=== PATIENT | female | born 2005 | race Caucasian/White ===

== ENCOUNTER 2024-06-08 18:07 | Outpatient (CLI) | payer OTHER, SELFPAY ==
[2024-06-08 18:56] LABS: HCG Quant, Pregnancy 15144 mIU/mL (1-3)
== END 2024-06-08 18:08 | disposition home or self-care (01) ==
LOC: LBO 18:07
PROVIDERS: Advanced Practice Midwife; Visit Provider Obstetrics & Gynecology
DX: O03.9 Complete or unspecified spontaneous abortion without complication (principal); O20.9 Hemorrhage in early pregnancy, unspecified
CPT/HCPCS: 36415; 86850; 86900; 86901; 84702

== ENCOUNTER 2024-06-14 09:55 | Outpatient (CLI) | payer OTHER, SELFPAY ==
[2024-06-14 10:14] LABS: HCG Quant, Pregnancy 357 mIU/mL (1-3)
== END 2024-06-14 09:56 | disposition home or self-care (01) ==
LOC: LBO 09:57
PROVIDERS: Visit Provider Obstetrics & Gynecology
DX: O03.9 Complete or unspecified spontaneous abortion without complication (principal)
CPT/HCPCS: 36415; 84702

== ENCOUNTER 2025-09-27 00:38 | Outpatient (CLI) | payer BC, SELFPAY ==
[2025-09-27 11:19] LABS: Abs Immature Grans 0.07 10^3/uL (0.0-0.06); HCT 38.3 % (36.0-46.0); HGB 12.6 g/dL (11.2-15.7); Immature Grans % 0.7 %; MCH 28.6 pg (27.0-33.0); MCHC 32.9 % (32.0-36.0); MCV 87 fL (80-95); MPV 8.9 fL (8.0-11.0); Platelet Count 318 10^3/uL (130-400); RBC 4.40 10^6/uL (3.93-5.22); RDW 14.0 % (11.7-14.6); RDW-SD 44.2 fL; WBC 10.36 10^3/uL (4.4-10.8)
== END 2025-09-27 00:39 | disposition home or self-care (01) ==
LOC: LBO 00:39
PROVIDERS: Obstetrics & Gynecology; Visit Provider Advanced Practice Midwife
DX: Z01.818 Encounter for other preprocedural examination (principal)
CPT/HCPCS: 36415; 86850; 86900; 86901; 85025

== ENCOUNTER 2025-09-28 13:00 | Day surgery (SDC) | payer BC, SELFPAY ==
[2025-09-28] VITALS (17 sets, daily range): BP systolic 100–126; BP diastolic 48–82; PULSE 60–80; RESP 13–21; TEMP 36.4–37.1; TEMPC 37.1; O2SAT 97–100; BMI 20.2
[2025-09-28] MEDS: Lactated Ringers 1,000 ML 125 ML IV (13:49)
--- NOTE | 2025-09-28 15:02 | W.ANESPRE ---
General Info Date of Service Date Performed: 09/28/25 Height: 5 ft 3 in Weight: 51.7 kg Body Mass Index (BMI): 20.2 Surgical Procedure: Operation Date: 09/28/25 14:25 Proposed Procedure Side Surgeon p D&C W/Juve Deleon DO Meds Allergies and Home Medications Allergies Allergy/AdvReac Type Severity Reaction Status Date / Time pet dander Allergy Intermediate Itching Uncoded 09/28/25 13:25 Home Medication ?Medication ?Instructions ?Recorded hydroxyzine HCl 25 mg tablet 25 mg PO QHS PRN 05/12/24 ondansetron HCl 4 mg tablet 4 mg PO Q6H PRN nausea and 08/29/25 vomiting #20 tabs fexofenadine 180 mg tablet 180 mg PO DAILY PRN 09/27/25 mwn-wuzk-xqhka acid 40 ml PO 09/27/25 mg-1 mg/15 mL oral liquid sertraline 25 mg tablet 25 mg PO DAILY #30 tabs 09/27/25 Current Visit Medications: Current Medications Generic Name Dose Route Start Last Admin Trade Name Issaq PRN Reason Stop Dose Admin Ringer's Solution 1,000 mls @ 125 mls/hr 09/28/25 06:00 09/28/25 13:49 IV 09/28/25 23:59 125 mls/hr INFUSION MARY Administration Doxycycline Hyclate 100 mg/ 100 mls @ 100 mls/hr 09/27/25 16:00 Sodium Chloride IVPB 09/28/25 16:00 TODAY MARY Sodium Chloride 0 ml 09/28/25 06:00 Normal Saline Flush 10 Ml Syr IV 09/28/25 23:59 PRN PRN Sodium Chloride 0 ml 09/28/25 06:00 Normal Saline 10 Ml Vial IJ 09/28/25 23:59 DIRECTED PRN Sterile Water 0 ml 09/28/25 06:00 Water,Injection,Sterile 10 Ml Vial IJ 09/28/25 23:59 DIRECTED PRN PFSH Active Problems Active Problems: Problem Status Onset Code Embryonic demise Acute O02.1 Chronic post-traumatic stress disorder (PTSD) Acute F43.12 Acute Z34.90 SAB (spontaneous ) Acute O03.9 Anxiety Chronic F41.9 Depression Chronic F32.A Medical History Medical History ADHD Delayed menses Early stage of Bleeding in early Surgical History Surgical History Hx of knee surgery Tobacco Smoking/Tobacco Use Status: Current every day Tobacco Type: e-cigarettes Smokeless tobacco user: other Passive smoking exposure: No Alcohol Alcohol Intake: former Substance Use Substance use: Daily Substance use type: marijuana Details: 09/28/25: smoked marijuana this a.m. Prental History History 2 Para 0 Hx # Term Pregnancies 0 Multiple births 0 Hx # Pregnancies 0 Ectopic pregnancies 0 AB induced 0 Hx Number of Living Children 0 AB spontaneous 1 Vital Signs and Lab Results Vital Signs Most Recent Vital Signs in EMR: Most Recent Vital Signs Temp Pulse Resp BP Pulse Ox 37.1 C 73 16 119/65 97 09/28/25 13:19 09/28/25 13:19 09/28/25 13:19 09/28/25 13:19 09/28/25 13:19 Lab Results Blood Type / Crossmatch: Antibody Screen NEGATIVE 09/27/25 Complete Blood Count: WBC, (4.4-10.8) 10.36 10^3/uL 09/27/25, 11:10 RBC, (3.93-5.22) 4.40 10^6/uL 09/27/25, 11:10 Hgb, (11.2-15.7) 12.6 g/dL 09/27/25, 11:10 Hct, (36.0-46.0) 38.3 % 09/27/25, 11:10 Plt Count, (130-400) 318 10^3/uL 09/27/25, 11:10 Anesthesia Assessment and Plan Anesthesia History Personal History: No History of Anesthesia Complications Family History: No Family History of Anesthesia Complications Exercise Tolerance Exercise Tolerance: Metabolic Equivalents>4 Cardiac & Pulmonary Exam Cardiac Exam: Normal S1/S2 Heart Sounds Pulmonary Exam: Clear Bilateral Breath Sounds Implantable Cardiac Device Does patient have a Pacemaker or an ICD?: No Airway Exam Known Difficult Airway: No Mallampati Class: 2 Mouth Opening: Normal (> 3cm) Thyromental Distance: Greater than 3 cm Neck Range of Motion: Full ROM Neck Circumference: Normal Teeth Condition: Normal Dentition ASA Classification ASA Score: ASA 2 Emergency Case?: No NPO Status NPO Status: NPO Clears >2 hours, Solids >8 hours Status Status: Other Anesthesia Plan Resuscitation Status: Full Code Anesthesia Technique: General Anesthesia Airway Planned: Endotracheal Tube Monitors Used: Standard Monitors Preoperative Comments:: 19 yo for D/C. Sig PMHx: RAD (albuterol), anxiety/depression, PTSD. Smoker (e-cig, cannabis)
[2025-09-28] MEDS: DOXYCYCLINE 100 MG in Normal Saline 100 ML IVPB (15:30)
--- NOTE | 2025-09-28 15:47 | POCSPONT_PTH ---
PATIENT: Juanito Mazariegos LOC: [facility] U#:[id number] AGE/SX: 19/F ROOM: RE09/28/[address]: Mercy Deleon DO : 2005 BED: DIS: 09/28/2025 SPEC #: [id number] RECD: 09/28/25 18:01 STATUS: JUDIT REQ #: [id number] MIGUE: 09/28/25 15:[address]: Mercy Deleon DEPT: Surgical Specimen RECD BY: Lisset Yoo ENTERED: 09/28/25 18:02 SP TYPE: DREW MARTINEZ DR: Unknown,Unknown Tissues: 1 - ,SPONTANEOUS Procedures: GROSS AND MICRO LEVEL 4 Comments: [id number] (CYTOGENETICS CG25- )
--- NOTE | 2025-09-28 16:00 | W.PM.OP ---
Operative Note Operative Note PRE-OP DIAGNOSIS: Embryonic demise at 12 weeks POST-OP DIAGNOSIS: same PROCEDURE: Dilation curettage with suction SURGEON: Mercy Deleon ANESTHESIA TYPE: General LMA/ETT Refer to Anesthesia Record ESTIMATED BLOOD LOSS: 300 PATHOLOGY: other (Products of conception for pathologic examination and cytogenetics) COMPLICATIONS: None Patient was transported to: PACU Patient's condition: stable Indications: Embryonic demise at 12 weeks, measuring 10 weeks on ultrasound Findings: Copious products of conception Procedure Description: After informed consent was obtained, and the patient was taken to the operating suite. She is placed in the dorsal supine position and endotracheal intubation performed for the administration of anesthesia. She was then placed in the modified dorsolithotomy position and prepped and draped in the usual sterile fashion in yellowfin stirrups. Her bladder had been previously emptied. Exam under anesthesia revealed a uterus that was midline and mobile. A timeout was held. Patient received 100 mg of doxycycline prior to procedure. A speculum was inserted into the vaginal vault and an Allis clamp used to grasp the anterior lip of the cervix. The cervical os was dilated gently to the point that a 9 [place] curved suction curette could be passed without difficulty. With suction curettage, copious tissue was returned from the uterus. There was a specimen that was sent for cytogenetics separately. A sharp curettage was performed with a banjo curette until the coarse cry of the uterus could be felt in all 4 quadrants. A second pass with the suction curette was then performed. the uterus was empty of its contents and small and involuted postprocedure. At this point, the procedure was terminated and the Allis clamp removed from the cervix. Speculum was removed and the patient was returned to the dorsal supine position and awoke from anesthesia without difficulty. She was taken to the postanesthesia care unit in stable condition. Complications: None apparent Fluids: Crystalloid per anesthesia Pathology: Uterine contents, products of conception for examination, and cytogenetics EBL: 300 mL Findings: As above. Date of Procedure: 09/28/25
--- NOTE | 2025-09-28 16:12 | W.ANESPOSTOP ---
Postoperative Evaluation Date, Time and Location Date Performed: 09/28/25 Time Performed: 16:12 Patient Location: PACU Vital Signs Most Recent Imported Vital Signs: Most Recent Vital Signs Temp Pulse Resp BP Pulse Ox 37.1 C 73 16 119/65 97 09/28/25 16:00 09/28/25 13:19 09/28/25 13:19 09/28/25 13:19 09/28/25 13:19 Most Recent Manually Entered Vital Signs: Adult Blood Pressure: 119/65 Heart Rate: 73 Respirations: 16 Oxygen Saturation (%): 97 Temperature (C): 37.1 C Pain Score (0-10 Scale): 8 Pain Score Most Recent Pain Score: Most Recent Pain Score Pain Level 8 09/28/25 16:05 Assessment Mental Status: Awake (Alert & Oriented to Patient Baseline) Airway and Respiratory Function: Patent airway with normal (patient baseline) respiratory exam Cardiovascular Function: Hemodynamically Stable Hydration Status: Adequately Hydrated Nausea & Vomiting: No Nausea or Vomiting Pain: Pain is Moderate or Severe Postoperative Pain Management: Pain being addressed with medication Peripheral Nerve Block: Patient did not receive a nerve block
[2025-09-28] MEDS: fentaNYL 100 MCG/2 ML VIAL IVP ×2 (16:20→16:26)
== END 2025-09-28 17:30 | disposition home or self-care (01) ==
PROVIDERS: Visit Provider Obstetrics & Gynecology
PROC: (CPT 59841; principal; 2025-09-28 14:15)
DX: O36.4XX0 Maternal care for intrauterine death, not applicable or unspecified (principal); O26.891 Other specified pregnancy related conditions, first trimester; Z3A.12 12 weeks gestation of pregnancy
CPT/HCPCS: 59820; 88305; 88307; J0131; J1100; J1885; J2003; J2250; J2405; J2704; J3010; J3475